=== PATIENT | female | born 1990 | race Caucasian/White ===

== ENCOUNTER → 2017-03-31 | Outpatient (CLI) | payer OTHER ==
--- NOTE | 2017-03-31 13:44 | MAMMOGRAPHY REPORT ---
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 Patient presents with a new possible mass in the lef t breast identified by her provider and also reassess the biopsy proven fibroadenoma which she report s may be increased in size. COMPARISON: Comparison is made to exam dated: 12/02/2015 ultrasound. FINDINGS: Targeted ultrasound was performed in the 9:00 right breast, 5 cm from the nipple in the ar ea of biopsy-proven fibroadenomatoid change, and also in the 5:00 left breast in the area of palpable lump pointed out by the patient. In the 9:00 right breast, 57 m from the nipple, there is a lobulat ed parallel hypoechoic solid mass adjacent to the pectoralis muscle. A linear echogenic structure is seen within, most likely representing the biopsy marker clip placed after the biopsy. This mass connor sures 1.1 x 0.3 x 1.2 cm. Given slight differences in measuring technique this has not significantly changed compared to the prior outside ultrasound at which time it measured 1.0 x 1.4 x 0.5 cm. This is considered benign given no change in size and biopsy-proven fibroadenomatoid nodule. Additional targeted ultrasound was performed in the 5:00 left breast in the area of palpable lump poi nted out by the patient. On palpation, there is a soft mobile 1 cm mass. On ultrasound, sonographic ally normal fibroglandular tissue is seen without a discrete solid or cystic mass. IMPRESSION: ACR BI-RADS CATEGORY 2: BENIGN 1. There is no new suspicious targeted sonographic abnormality in the area of palpable lump in the 5 :00 left breast. This most likely represents normal glandular tissue overlying a rib. Continued cli nical follow-up and clinical monitoring is recommended, as biopsy of a clinically suspicious mass romain uld not be precluded by negative imaging. 2. Stable sonographic appearance of a biopsy-proven fibroadenomatoid nodule in the 9:00 right breast , 5 cm from the nipple. These results and recommendations were discussed with the patient at the time of the exam. Anne Cavazos M.D. ay/:03/31/2017 09:25:51 [employer] Manager: Dr. Anne Cavazos, [facility] letter sent: Normal /2 BI-RADS Code: ACR BI-RADS Category 2: Benign
== END | disposition home or self-care (01) ==
LOC: C.MAMM 08:22
PROVIDERS: ATTEND Physician Assistant Medical
DX: R92.8 Other abnormal and inconclusive findings on diagnostic imaging of breast (principal); N63.20 Unspecified lump in the left breast, unspecified quadrant